=== PATIENT | female | born 1990 | race Caucasian/White ===

== ENCOUNTER 2016-08-02 17:01 | Emergency (ER) | payer MEDICAID ==
[~2016-08-02] VITALS: Ht 170.2 cm; Wt 75.4 kg
[2016-08-02] MEDS ORDERED: SODIUM CHLORIDE 0.9% 1,000 ML IV ONE (17:18)
[2016-08-02] MEDS ORDERED: SODIUM CHLORIDE 0.9% 1,000ML IVBOLUS ONE (17:30)
[2016-08-02] MEDS ORDERED: ONDANSETRON 2MG/ML, 2ML IVPush ONE (17:30)
[2016-08-02] MEDS ORDERED: ONDANSETRON 2MG/ML, 2ML ONE (17:55)
[2016-08-02 18:07] LABS: BLOOD UREA NITROGEN 13 mg/dL (7-18)
[2016-08-02 18:25] LABS: ASPARTATE AMINO TRANSFERASE 12 U/L (15-37)
[2016-08-02] MEDS ORDERED: POTASSIUM CHLORIDE 20 MEQ TAB.ER.PRT PO ONE (19:30)
[2016-08-02] MEDS ORDERED: ACETAMINOPHEN 325 MG TABLET PO ONE (19:30)
[2016-08-02] MEDS ORDERED: ACETAMINOPHEN 325 MG TABLET ONE (19:56)
[2016-08-02] MEDS ORDERED: POTASSIUM CHLORIDE 20 MEQ TAB.ER.PRT ONE (19:56)
[2016-08-02] MEDS ORDERED: LORazepam 2 MG/ML, 1ML ONE (20:13)
[2016-08-02] MEDS ORDERED: LORazepam 2 MG/ML, 1ML IVPush ONE (20:30)
[2016-08-02 20:45] VITALS: BP 128/71
== END 2016-08-02 21:13 | disposition home or self-care (01) ==
LOC: ED 20:44
DX: O20.8 Other hemorrhage in early pregnancy (principal); O21.0 Mild hyperemesis gravidarum; E86.9 Volume depletion, unspecified; E87.6 Hypokalemia
CPT/HCPCS: 36415; 71010; 76801; 80053; 81001; 84702; 85025; 86850; 86900; 93005; 96361; 96374; 96375; 99285; J2060; J2405; J7030